=== PATIENT | male | born 1985 | race Caucasian/White ===

== ENCOUNTER 2016-09-24 16:37 | Emergency (ER) | payer OTHER ==
[2016-09-24 19:14] VITALS: BP 120/74
== END 2016-09-24 19:14 | disposition home or self-care (01) ==
LOC: ED 17:01
DX: S61.512A Laceration without foreign body of left wrist, initial encounter (principal); W22.8XXA Striking against or struck by other objects, initial encounter
CPT/HCPCS: 90715; A4550; A6402

== ENCOUNTER 2016-10-05 10:59 | Emergency (ER) | payer OTHER ==
[2016-10-05 11:08] VITALS: BP 119/81
== END 2016-10-05 11:10 | disposition home or self-care (01) ==
LOC: ED 10:59